=== PATIENT | male | born 1950 | race Caucasian/White ===

== ENCOUNTER 2022-02-14 09:27 | Outpatient (CLI) | payer MEDICARE ==
[2022-02-14 10:15] LABS: BASOPHILS # (AUTO) 0.1 X10'3 (0-0.2); BASOPHILS % (AUTO) 0.8 % (0-1); EOSINOPHILS # (AUTO) 0.5 X10'3 (0-0.9); EOSINOPHILS % (AUTO) 3.9 % (0-6); HEMATOCRIT 40.9 % (42.0-52.0); HEMOGLOBIN 13.3 g/dl (14.0-17.9); LYMPHOCYTES % (AUTO) 25.1 % (21-51); MEAN CORPUSCULAR HEMOGLOBIN 28.3 PG (27.0-31.0); MEAN CORPUSCULAR HGB CONC 32.4 g/dL (33.0-36.5); MEAN CORPUSCULAR VOLUME 87.4 FL (78-98); MEAN PLATELET VOLUME 8.7 FL (7.4-10.4); MONOCYTES # (AUTO) 0.9 X10'3 (0-0.9); MONOCYTES % (AUTO) 7.4 % (2-12); NEUTROPHILS # (AUTO) 7.6 X10'3 (1.8-7.7); NEUTROPHILS % (AUTO) 62.8 % (42-75); PLATELET COUNT 237 X10'3 (140-440); RED BLOOD COUNT 4.68 X10'6 (4.70-6.10); RED CELL DISTRIBUTION WIDTH 14.8 % (11.5-14.5)
[2022-02-14 10:24] LABS: ALBUMIN 2.9 G/DL (3.4-5.0); ANION GAP 9 (8-16); APTT 29 SECONDS (22-32); BLOOD UREA NITROGEN 13 MG/DL (7-18); BUN/CREATININE RATIO 11.6 (5.4-32.0); CALCIUM 9.2 MG/DL (8.5-10.1); CHLORIDE 99 MMOL/L (99-107); CHOL/HDL RATIO 4.4 (0.00-4.99); CHOLESTEROL 155 MG/DL (0-200); CREATININE 1.12 MG/DL (0.60-1.10); GLUCOSE 113 MG/DL (70-104); HDL CHOLESTEROL 35 MG/DL (35-60); LDL CHOLESTEROL 105 MG/DL (50-100); POTASSIUM 3.4 MMOL/L (3.5-5.1); SODIUM 143 MMOL/L (135-145); TOTAL CARBON DIOXIDE 35.4 MMOL/L (24-32); TRIGLYCERIDES 90 MG/DL (20-135); eGFR 65 ML/MIN
== END 2022-02-14 23:59 | disposition home or self-care (01) ==
LOC: LAB 09:27
PROVIDERS: ATTEND Internal Medicine Interventional Cardiology
DX: E78.5 Hyperlipidemia, unspecified (principal); I48.0 Paroxysmal atrial fibrillation; I10 Essential (primary) hypertension
CPT/HCPCS: 36415; 80048; 80061; 85025; 85610; 85730

== ENCOUNTER 2022-03-05 11:37 | Day surgery (SDC) | payer MEDICARE ==
[~2022-03-05] VITALS: Ht 172.7 cm; Wt 138.2 kg
[2022-03-05] VITALS (7 sets, daily range): BP systolic 126–151; BP diastolic 62–78
[2022-03-05] MEDS ORDERED: LORazepam 0.5 MG tablet PO PRN (11:55)
[2022-03-05] MEDS ORDERED: diphenhydrAMINE 25mg capsule PO PRN (11:55)
[2022-03-05] MEDS ORDERED: normal saline 1,000 ML IV SCH (11:55)
[2022-03-05] MEDS ORDERED: METO100T14 PO (12:19)
[2022-03-05] MEDS ORDERED: INSU100I31 SQ (12:19)
[2022-03-05] MEDS ORDERED: DULO60CA65 PO (12:19)
[2022-03-05] MEDS ORDERED: LISI10TA27 PO (12:19)
[2022-03-05] MEDS ORDERED: ATOR20TA66 PO (12:19)
[2022-03-05] MEDS ORDERED: POTA-206 PO (12:19)
[2022-03-05] MEDS ORDERED: OMEP40CA21 PO (12:19)
[2022-03-05] MEDS ORDERED: GABA300C PO (12:19)
[2022-03-05] MEDS ORDERED: PIOG30TA71 PO (12:19)
[2022-03-05] MEDS ORDERED: FLO0.4C PO (12:31)
[2022-03-05] MEDS ORDERED: HYDR-4069 PO (12:32)
[2022-03-05] MEDS ORDERED: OXYB-58 PO (12:32)
[2022-03-05] MEDS ORDERED: LOPE2CAP PO (12:37)
[2022-03-05] MEDS ORDERED: VITAMIN B12 (12:37)
[2022-03-05] MEDS ORDERED: DOCU100C40 PO (12:37)
[2022-03-05] MEDS ORDERED: ASPI-803 (12:37)
[2022-03-05] MEDS ORDERED: CHOL100046 PO (12:38)
[2022-03-05] MEDS ORDERED: nitroGLYCERIN-Tridil 50MG/D5W 250 ML IV ONE (13:01)
[2022-03-05] MEDS ORDERED: verapamil 2.5 mg/ml inj IV ONE (13:01)
[2022-03-05] MEDS ORDERED: midazolam 1 mg/ML 2ml injection ONE (13:02)
[2022-03-05] MEDS ORDERED: LIDOcaine 1% (10mg/ml) 2ml vial ONE (13:02)
[2022-03-05] MEDS ORDERED: fentaNYL/PF 50MCG/1 ML 2ML syringe ONE (13:02)
[2022-03-05] MEDS ORDERED: heparin 1,000unit/ml 10ml vial 10 ML ONE (13:02)
[2022-03-05] MEDS ORDERED: iohexol 300mg/ml 100ml inj. ONE (13:02)
[2022-03-05 13:06] LABS: BASOPHILS # (AUTO) 0.1 X10'3 (0-0.2); BASOPHILS % (AUTO) 1.1 % (0-1); EOSINOPHILS # (AUTO) 0.5 X10'3 (0-0.9); EOSINOPHILS % (AUTO) 5.1 % (0-6); HEMATOCRIT 39.4 % (42.0-52.0); LYMPHOCYTES # (AUTO) 3.1 X10'3 (1.1-4.8); LYMPHOCYTES % (AUTO) 31.6 % (21-51); MEAN CORPUSCULAR HEMOGLOBIN 28.8 PG (27.0-31.0); MEAN CORPUSCULAR HGB CONC 32.9 g/dL (33.0-36.5); MEAN CORPUSCULAR VOLUME 87.4 FL (78-98); MEAN PLATELET VOLUME 8.3 FL (7.4-10.4); MONOCYTES # (AUTO) 0.8 X10'3 (0-0.9); MONOCYTES % (AUTO) 8.3 % (2-12); NEUTROPHILS # (AUTO) 5.2 X10'3 (1.8-7.7); NEUTROPHILS % (AUTO) 53.9 % (42-75); PLATELET COUNT 253 X10'3 (140-440); RED BLOOD COUNT 4.51 X10'6 (4.70-6.10); RED CELL DISTRIBUTION WIDTH 14.7 % (11.5-14.5); WHITE BLOOD COUNT 9.7 X10'3 (4.5-11.0)
[2022-03-05 13:34] LABS: ALBUMIN 2.8 G/DL (3.4-5.0); BLOOD UREA NITROGEN 15 MG/DL (7-18); CREATININE 1.15 MG/DL (0.60-1.10); GLUCOSE 112 MG/DL (70-104); TOTAL CARBON DIOXIDE 33.5 MMOL/L (24-32); eGFR 63 ML/MIN
[2022-03-05 13:36] LABS: APTT 29 SECONDS (22-32)
[2022-03-05 13:49] LABS: ANION GAP 4 (8-16); CHLORIDE 104 MMOL/L (99-107); POTASSIUM 3.3 MMOL/L (3.5-5.1); SODIUM 141 MMOL/L (135-145)
[2022-03-05] MEDS ORDERED: hydrALAZINE 20mg/ml inj. IV ONE (14:16)
[2022-03-05] MEDS ORDERED: proCHLORperazine 10 MG/2 ml inj ONE (14:35)
[2022-03-05] MEDS ORDERED: HYDROmorphone 1 mg/ml syringe ONE (14:44)
[2022-03-05] MEDS ORDERED: clopidogrel 300mg tablet ONE (15:47)
[2022-03-05] MEDS ORDERED: iohexol 350MG/ML 100ml bottle IV ONE ×3 (15:47→16:14)
[2022-03-05] MEDS ORDERED: aspirin 325mg tablet ONE (15:48)
[2022-03-05] MEDS ORDERED: normal saline 1000ml 1,000 ML IV SCH (18:10)
== END 2022-03-05 19:05 | disposition home or self-care (01) ==
LOC: SSTAY O 11:37
PROVIDERS: ATTEND Student in an Organized Health Care Education/Training Program
DX: R94.39 Abnormal result of other cardiovascular function study (principal); I25.10 Atherosclerotic heart disease of native coronary artery without angina pectoris; E11.22 Type 2 diabetes mellitus with diabetic chronic kidney disease; I13.0 Hypertensive heart and chronic kidney disease with heart failure and stage 1 through stage 4 chronic kidney disease, or unspecified chronic kidney disease; N18.9 Chronic kidney disease, unspecified; N18.30 Chronic kidney disease, stage 3 unspecified; I48.91 Unspecified atrial fibrillation; E78.5 Hyperlipidemia, unspecified; Z79.01 Long term (current) use of anticoagulants; Z79.899 Other long term (current) drug therapy; Z98.890 Other specified postprocedural states; Z88.0 Allergy status to penicillin; Z88.8 Allergy status to other drugs, medicaments and biological substances; Z88.6 Allergy status to analgesic agent
CPT/HCPCS: 36415; 80048; 85025; 85610; 85730; 93005; 93458; 93567; 99152; 99153; C1769; C1894; J0360; J0780; J1170; J1644; J2250; J3010; J3490; J7030; Q0163; Q9967; A4615; A6258; A6402

== ENCOUNTER 2022-04-30 10:05 | Day surgery (SDC) | payer MEDICARE ==
[2022-04-25 08:34] LABS: BASOPHILS # (AUTO) 0.1 X10'3 (0-0.2); BASOPHILS % (AUTO) 1.2 % (0-1); EOSINOPHILS # (AUTO) 0.3 X10'3 (0-0.9); EOSINOPHILS % (AUTO) 3.1 % (0-6); HEMOGLOBIN 13.5 g/dl (14.0-17.9); LYMPHOCYTES # (AUTO) 3.7 X10'3 (1.1-4.8); LYMPHOCYTES % (AUTO) 33.8 % (21-51); MEAN CORPUSCULAR HEMOGLOBIN 28.6 PG (27.0-31.0); MEAN CORPUSCULAR HGB CONC 32.8 g/dL (33.0-36.5); MEAN CORPUSCULAR VOLUME 87.2 FL (78-98); MEAN PLATELET VOLUME 8.6 FL (7.4-10.4); MONOCYTES # (AUTO) 0.8 X10'3 (0-0.9); MONOCYTES % (AUTO) 7.3 % (2-12); NEUTROPHILS % (AUTO) 54.6 % (42-75); PLATELET COUNT 253 X10'3 (140-440); RED CELL DISTRIBUTION WIDTH 15.3 % (11.5-14.5); WHITE BLOOD COUNT 10.9 X10'3 (4.5-11.0)
[2022-04-25 08:45] LABS: APTT 29 SECONDS (22-32)
[2022-04-25 08:48] LABS: ALBUMIN 2.9 G/DL (3.4-5.0); ANION GAP 4 (8-16); BLOOD UREA NITROGEN 23 MG/DL (7-18); CALCIUM 8.6 MG/DL (8.5-10.1); CHLORIDE 103 MMOL/L (99-107); CHOL/HDL RATIO 4.5 (0.00-4.99); CHOLESTEROL 145 MG/DL (0-200); CREATININE 1.21 MG/DL (0.60-1.10); GLUCOSE 73 MG/DL (70-104); HDL CHOLESTEROL 32 MG/DL (35-60); LDL CHOLESTEROL 98 MG/DL (50-100); POTASSIUM 3.4 MMOL/L (3.5-5.1); SODIUM 141 MMOL/L (135-145); TOTAL CARBON DIOXIDE 34.2 MMOL/L (24-32); TRIGLYCERIDES 72 MG/DL (20-135); eGFR 59 ML/MIN
[2022-04-30] VITALS (9 sets, daily range): BP systolic 144–182; BP diastolic 72–92
[~2022-04-30] VITALS: Ht 172.7 cm; Wt 140.5 kg
[~2022-04-30 10:05] MED LIST: ASPI-803 PO; ATOR20TA66 PO; CHOL100046 PO; DOCU100C40 PO; DULO60CA65 PO; FLO0.4C PO; GABA300C PO; HYDR-4069 PO; INSU100I31 SQ; LISI10TA27 PO; LOPE2CAP PO; METO100T14 PO; OMEP40CA21 PO; OXYB-58 PO; PIOG30TA71 PO; POTA-206 PO; VITAMIN B12
[2022-04-30] MEDS ORDERED: LORazepam 0.5 MG tablet PO PRN (10:20)
[2022-04-30] MEDS ORDERED: normal saline 1,000 ML IV SCH (10:20)
[2022-04-30] MEDS ORDERED: diphenhydrAMINE 25mg capsule PO PRN (10:20)
[2022-04-30] MEDS ORDERED: heparin 1,000unit/ml 10ml vial 10 ML ONE ×2 (13:14→14:03)
[2022-04-30] MEDS ORDERED: LIDOcaine 1% 30ml preserv. free vial ONE (13:14)
[2022-04-30] MEDS ORDERED: fentaNYL/PF 50MCG/1 ML 2ML syringe ONE ×2 (13:14→14:20)
[2022-04-30] MEDS ORDERED: iohexol 350MG/ML 100ml bottle IV ONE ×3 (13:14→14:16)
[2022-04-30] MEDS ORDERED: midazolam 1 mg/ML 2ml injection ONE ×2 (13:14→14:01)
[2022-04-30] MEDS ORDERED: nitroGLYCERIN-Tridil 50MG/D5W 250 ML IV ONE (13:39)
[2022-04-30] MEDS ORDERED: verapamil 2.5 mg/ml inj IV ONE (13:39)
[2022-04-30] MEDS ORDERED: clopidogrel 300mg tablet ONE (14:03)
[2022-04-30] MEDS ORDERED: aspirin 325mg tablet ONE (14:03)
[2022-04-30] MEDS ORDERED: HYDROmorphone 1 mg/ml syringe ONE (14:06)
[2022-04-30] MEDS ORDERED: HYDROcodone/acetaminophen 5mg/325mg tablet PO PRN (15:20)
[2022-04-30] MEDS ORDERED: HYDROcodone/acetaminophen 10/325mg tab PO PRN (15:20)
[2022-04-30] MEDS ORDERED: metoprolol tartrate 50mg tablet PO SCH (20:00)
[2022-04-30] MEDS ORDERED: loperamide 2mg capsule PO SCH (20:00)
[2022-04-30] MEDS ORDERED: gabapentin 300mg capsule PO SCH (20:00)
[2022-04-30] MEDS ORDERED: atorvastatin 20mg tablet PO SCH (21:00)
[2022-04-30] MEDS ORDERED: hydrALAZINE 25 MG tablet PO SCH (21:00)
[2022-04-30] MEDS ORDERED: insulin glargine (Lantus) pen - multi-dose SQ SCH (21:00)
[2022-05-01] MEDS ORDERED: cholecalciferol (vitamin D3) 1,000 unit (25mcg) tablet PO SCH (08:00)
[2022-05-01] MEDS ORDERED: tamsulosin 0.4mg capsule PO SCH (08:00)
[2022-05-01] MEDS ORDERED: potassium chloride 10mEq ER tablet PO SCH (08:00)
[2022-05-01] MEDS ORDERED: lisinopril 10 MG tablet PO SCH (08:00)
[2022-05-01] MEDS ORDERED: pantoprazole 40mg Tablet.DR PO SCH (08:00)
[2022-05-01] MEDS ORDERED: pioglitazone 15mg tablet PO SCH (08:00)
[2022-05-01] MEDS ORDERED: duloxetine 30mg CAPSULE.DR PO SCH (08:00)
== END 2022-04-30 17:45 | disposition home or self-care (01) ==
LOC: SSTAY O 10:05
PROVIDERS: ATTEND Student in an Organized Health Care Education/Training Program
DX: I25.10 Atherosclerotic heart disease of native coronary artery without angina pectoris (principal); E11.22 Type 2 diabetes mellitus with diabetic chronic kidney disease; I13.0 Hypertensive heart and chronic kidney disease with heart failure and stage 1 through stage 4 chronic kidney disease, or unspecified chronic kidney disease; N18.30 Chronic kidney disease, stage 3 unspecified; I50.9 Heart failure, unspecified; I48.91 Unspecified atrial fibrillation; I45.10 Unspecified right bundle-branch block; E78.5 Hyperlipidemia, unspecified; Z88.0 Allergy status to penicillin; Z88.5 Allergy status to narcotic agent; Z88.8 Allergy status to other drugs, medicaments and biological substances; Z79.899 Other long term (current) drug therapy; Z87.891 Personal history of nicotine dependence
CPT/HCPCS: 36415; 80048; 80061; 82948; 85025; 85610; 85730; 93005; 99152; 99153; C1725; C1751; C1769; C1874; C1894; C9600; J1170; J1644; J1815; J2250; J3010; J3490; J7030; Q9967; A6258; A6449